=== PATIENT | female | born 1960 | race Asian ===

== ENCOUNTER 2018-02-03 11:11 | Outpatient (CLI) | payer OTHER ==
[~2018-02-03 11:11] MED LIST: CARV6.25 PO; CELEXA20 MG PO; CLON1TAB18 PO; DIVA250T2 PO; FLUOXETINE20 M2 PO; HYDR25TA60 PO; KLOR-CON 1010 MEQ PO; MELO-13 PO; METF500T PO; NEXIUM40 M1 PO; SENNA8.6 MG PO; TOPI100T PO; VIMPAT150 MG PO; ZANTAC 75 PO
== END 2018-02-03 21:40 | disposition home or self-care (01) ==
LOC: RAD 11:11
DX: M54.17 Radiculopathy, lumbosacral region (principal)

== ENCOUNTER 2018-02-23 15:09 | Outpatient (CLI) | payer OTHER | END 2018-02-23 15:12 | disposition short-term general hospital (02) | LOC: AMB 15:09 | DX: R45.851 Suicidal ideations (principal) | CPT/HCPCS: A0425; A0429 ==

== ENCOUNTER 2018-02-23 15:15 | Emergency (ER) | payer OTHER ==
[~2018-02-23] VITALS: Ht 167.6 cm; Wt 106.1 kg
[2018-02-23 15:55] LABS: PLATELET COUNT 234 K/uL (152-353)
[2018-02-23 16:11] LABS: POTASSIUM 3.5 mmol/L (3.6-5.2)
[2018-02-23 23:55] VITALS: TEMP 98.6
[2018-02-24 01:16] VITALS: BP 157/80
== END 2018-02-24 01:18 | disposition other institution (70) ==
LOC: ED 15:15
DX: R45.851 Suicidal ideations (principal); F19.90 Other psychoactive substance use, unspecified, uncomplicated
CPT/HCPCS: 36415; 80053; 80307; 80320; 80329; 81000; 82550; 84484; 85027; 93005; 99285

== ENCOUNTER 2018-06-09 17:44 | Outpatient (CLI) | payer OTHER | END 2018-06-09 19:39 | disposition home or self-care (01) | LOC: RAD 17:44 | DX: M25.571 Pain in right ankle and joints of right foot (principal) | CPT/HCPCS: 36415; 80164 ==

== ENCOUNTER 2018-07-14 08:54 | Outpatient (CLI) | payer OTHER | END 2018-07-14 08:58 | disposition short-term general hospital (02) | LOC: AMB 08:54 | DX: G40.89 Other seizures (principal) | CPT/HCPCS: A0425; A0427 ==

== ENCOUNTER 2018-07-14 08:58 | Emergency (ER) | payer OTHER ==
[~2018-07-14] VITALS: Ht 167.6 cm; Wt 124.7 kg
[2018-07-14 09:00] VITALS: TEMP 97.3
[2018-07-14 09:26] LABS: PLATELET COUNT 242 K/uL (152-353)
[2018-07-14 09:35] LABS: POTASSIUM 4.1 mmol/L (3.6-5.2)
[2018-07-14 10:16] VITALS: BP 174/80
== END 2018-07-14 10:15 | disposition home or self-care (01) ==
LOC: ED 09:01
PROVIDERS: Emergency Medicine
DX: R56.9 Unspecified convulsions (principal)
CPT/HCPCS: 36415; 80053; 85027; 99283

== ENCOUNTER 2018-07-21 10:42 | Outpatient (CLI) | payer OTHER | END 2018-07-21 19:20 | disposition home or self-care (01) | LOC: MAMMO 10:42 | DX: Z12.31 Encounter for screening mammogram for malignant neoplasm of breast (principal) ==

== ENCOUNTER 2018-08-09 09:18 | Outpatient (CLI) | payer OTHER | END 2018-08-09 19:21 | disposition home or self-care (01) | LOC: RAD 09:18 | DX: M25.561 Pain in right knee (principal); M25.562 Pain in left knee ==

== ENCOUNTER 2018-12-08 16:23 | Outpatient (CLI) | payer OTHER | END 2018-12-08 19:34 | disposition home or self-care (01) | LOC: RAD 16:23 | DX: M54.17 Radiculopathy, lumbosacral region (principal) ==

== ENCOUNTER 2019-03-25 13:29 | Outpatient (CLI) | payer OTHER | END 2019-03-25 23:33 | disposition home or self-care (01) | LOC: MRI 13:29 | DX: M54.16 Radiculopathy, lumbar region (principal) ==

== ENCOUNTER 2020-03-25 22:25 | Emergency (ER) | payer OTHER ==
[~2020-03-25] VITALS: Ht 167.6 cm; Wt 133.8 kg
[2020-03-25] MEDS ORDERED: SPRITAM750 MG PO (22:40)
[2020-03-25] MEDS ORDERED: ZONEGRAN100 MG PO (22:41)
[2020-03-25] MEDS ORDERED: AMLODIPINE BESYLATE PO (22:41)
[2020-03-25] MEDS ORDERED: MELOXICAM7.5 MG PO (22:41)
[2020-03-25] MEDS ORDERED: HYDR25TA60 PO (22:42)
[2020-03-25] MEDS ORDERED: CITALOPRAM40 M1 PO (22:42)
[2020-03-25] MEDS ORDERED: METF500T PO (22:43)
[2020-03-25] MEDS ORDERED: CARV6.25 PO (22:43)
[2020-03-25] MEDS ORDERED: QUETIAPINE100 MG PO (22:44)
[2020-03-25] MEDS ORDERED: KLOR-CON M2020 MEQ PO (22:44)
[2020-03-25 22:54] LABS: PLATELET COUNT 261 K/uL (152-353)
[2020-03-25 23:01] LABS: POTASSIUM 2.8 mmol/L (3.6-5.2); SODIUM 135 mmol/L (136-145)
[2020-03-25 23:32] LABS: PARTIAL THROMBOPLASTIN TIME 27.7 SECONDS (24.5-33.6)
[2020-03-26 00:30] VITALS: BP 148/76; TEMP 98.5
== END 2020-03-26 00:30 | disposition home or self-care (01) ==
LOC: ED 22:25
PROVIDERS: Hospitalist
DX: R56.9 Unspecified convulsions (principal); E87.6 Hypokalemia; Z79.899 Other long term (current) drug therapy; Z51.81 Encounter for therapeutic drug level monitoring; W01.198A Fall on same level from slipping, tripping and stumbling with subsequent striking against other object, initial encounter; Y92.098 Other place in other non-institutional residence as the place of occurrence of the external cause
CPT/HCPCS: 36415; 80053; 80320; 82550; 83605; 83880; 84484; 85027; 85610; 85730; 87040; 93005; 96365; 96375; 99284; J0696; J1885; J2405

== ENCOUNTER 2020-07-12 14:56 | Observation (INO) | payer OTHER ==
[~2020-07-12] VITALS: Ht 167.6 cm; Wt 137.9 kg
[~2020-07-12 14:56] MED LIST changes: +AMLODIPINE BESYLATE PO; +CITALOPRAM40 M1 PO; +KLOR-CON M2020 MEQ PO; +MELOXICAM7.5 MG PO; +QUETIAPINE100 MG PO; +SPRITAM750 MG PO; +ZONEGRAN100 MG PO
[2020-07-12 14:58] VITALS: BP 147/84; TEMP 98.7
[2020-07-12 15:30] VITALS: BP 142/76
[2020-07-12 15:35] LABS: PLATELET COUNT 294 K/uL (152-353)
[2020-07-12 15:44] LABS: SODIUM 133 mmol/L (136-145)
[2020-07-12 15:48] LABS: PARTIAL THROMBOPLASTIN TIME 26.3 SECONDS (24.5-33.6)
[2020-07-12 16:00] VITALS: BP 157/85
[2020-07-12 16:30] VITALS: BP 163/76
[2020-07-12] MEDS ORDERED: ROWEEPRA XR750 MG PO (17:53)
[2020-07-12 17:55] VITALS: BP 182/81; TEMP 98.2; Ht 167.6 cm; Wt 137.9 kg
[2020-07-12] MEDS ORDERED: ZONEGRAN100 MG PO (17:55)
[2020-07-12] MEDS ORDERED: CARAFATE1 GM PO (17:56)
[2020-07-12] MEDS ORDERED: OMEPRAZOLE DR40 MG PO (17:56)
[2020-07-12 20:00] VITALS: BP 114/78; TEMP 97.9
[2020-07-13] VITALS: BP 151/79; TEMP 98.1
[2020-07-13 04:00] VITALS: BP 120/68; TEMP 98.1
[2020-07-13] MEDS ORDERED: CELECOXIB100 MG PO (07:37)
[2020-07-13 08:00] VITALS: BP 133/66; TEMP 97.9
== END 2020-07-13 09:10 | disposition home or self-care (01) ==
LOC: ED 14:56 → MED/SURG 16:15
PROVIDERS: ADMIT Hospitalist
DX: M94.0 Chondrocostal junction syndrome [Tietze] (principal); E11.9 Type 2 diabetes mellitus without complications; K21.9 Gastro-esophageal reflux disease without esophagitis; I10 Essential (primary) hypertension; G40.802 Other epilepsy, not intractable, without status epilepticus; R06.02 Shortness of breath; R11.2 Nausea with vomiting, unspecified
CPT/HCPCS: 36415; 80053; 82550; 83880; 84484; 85027; 85610; 85730; 93005; 99220; G0378; J1650; J2270

== ENCOUNTER 2021-04-29 12:20 | Observation (INO) | payer OTHER ==
[~2021-04-29] VITALS: Ht 167.6 cm; Wt 127.5 kg
[~2021-04-29 12:20] MED LIST changes: +CARAFATE1 GM PO; +CELECOXIB100 MG PO; +OMEPRAZOLE DR40 MG PO; +ROWEEPRA XR750 MG PO
[2021-04-29 12:24] VITALS: BP 153/81; TEMP 98
[2021-04-29 13:03] LABS: PLATELET COUNT 281 K/uL (152-353)
[2021-04-29 13:08] LABS: POTASSIUM 3.5 mmol/L (3.6-5.2); SODIUM 140 mmol/L (136-145)
[2021-04-29 15:42] VITALS: BP 179/83; TEMP 98.3; Ht 167.6 cm; Wt 127.5 kg
[2021-04-29] MEDS ORDERED: HYDROXYZINE HYD50 MG PO (16:49)
[2021-04-29] MEDS ORDERED: ZONEGRAN100 MG PO ×2 (17:01→17:03)
[2021-04-29] MEDS ORDERED: KEPPRA750 MG PO (17:02)
[2021-04-29] MEDS ORDERED: FLUC150T PO (17:05)
[2021-04-29 20:00] VITALS: BP 154/86; TEMP 98.2
[2021-04-30] VITALS: BP 162/73; TEMP 97.7
[2021-04-30 04:00] VITALS: BP 159/70; TEMP 97.6
== END 2021-04-30 15:30 | disposition home or self-care (01) ==
LOC: ED 12:20 → MED/SURG 14:10
PROVIDERS: Emergency Medicine Emergency Medical Services; ADMIT Internal Medicine; ATTEND Internal Medicine
DX: R07.89 Other chest pain (principal); M25.512 Pain in left shoulder; G40.802 Other epilepsy, not intractable, without status epilepticus; I10 Essential (primary) hypertension; K21.9 Gastro-esophageal reflux disease without esophagitis; F41.8 Other specified anxiety disorders
CPT/HCPCS: 36415; 80053; 82550; 82948; 83735; 84484; 85027; 85379; 85610; 87635; 93005; 96360; 96374; 96375; 99220; 99284; G0378; J1885; J2270; U0003

== ENCOUNTER 2022-04-05 14:05 | Emergency (ER) | payer OTHER ==
[~2022-04-05] VITALS: Ht 167.6 cm; Wt 132.9 kg
[~2022-04-05 14:05] MED LIST changes: +FLUC150T PO; +HYDROXYZINE HYD50 MG PO; +KEPPRA750 MG PO
[2022-04-05 15:16] LABS: PLATELET COUNT 267 K/uL (152-353)
[2022-04-05 17:23] VITALS: BP 144/72; TEMP 98
== END 2022-04-05 17:30 | disposition home or self-care (01) ==
LOC: ED 14:05
PROVIDERS: Family Medicine
DX: M25.562 Pain in left knee (principal); M25.561 Pain in right knee; M17.0 Bilateral primary osteoarthritis of knee
CPT/HCPCS: 80053; 84550; 85007; 85027; 96374; 96375; 99284; J1100; J1200; J1885

== ENCOUNTER 2022-04-21 08:47 | Outpatient (CLI) | payer OTHER | END 2022-04-21 18:48 | disposition home or self-care (01) | LOC: US 08:47 | PROVIDERS: ATTEND Nurse Practitioner | DX: R60.0 Localized edema (principal) ==

== ENCOUNTER 2022-05-15 14:59 | Emergency (ER) | payer OTHER ==
[~2022-05-15] VITALS: Ht 167.6 cm; Wt 131.1 kg
[2022-05-15 15:16] VITALS: BP 181/79; TEMP 98
== END 2022-05-15 16:40 | disposition home or self-care (01) ==
LOC: ED 14:59
DX: S09.8XXA Other specified injuries of head, initial encounter (principal); S00.83XA Contusion of other part of head, initial encounter; W18.39XA Other fall on same level, initial encounter; Y92.89 Other specified places as the place of occurrence of the external cause
CPT/HCPCS: 96372; 99283; J1885

== ENCOUNTER 2022-07-22 13:00 | Emergency (ER) | payer OTHER ==
[~2022-07-22] VITALS: Ht 167.6 cm; Wt 142.9 kg
[2022-07-22 13:00] VITALS: TEMP 98
[2022-07-22 14:05] LABS: POTASSIUM 4.4 mmol/L (3.6-5.2)
[2022-07-22 14:18] LABS: PARTIAL THROMBOPLASTIN TIME 23.6 SECONDS (24.5-33.6); PLATELET COUNT 296 K/uL (152-353)
[2022-07-22 16:28] VITALS: BP 168/86
== END 2022-07-22 16:36 | disposition home or self-care (01) ==
LOC: ED 13:00
PROVIDERS: Emergency Medicine
DX: I10 Essential (primary) hypertension (principal); F41.8 Other specified anxiety disorders; R51.9 Headache, unspecified; G89.29 Other chronic pain; I50.9 Heart failure, unspecified; Z20.822 Contact with and (suspected) exposure to COVID-19; F17.210 Nicotine dependence, cigarettes, uncomplicated
CPT/HCPCS: 80053; 80307; 83880; 84484; 85027; 85610; 85730; 87635; 93005; 96374; 96375; 99284; J0360; J2060; J3490; U0003

== ENCOUNTER 2022-09-15 10:59 | Outpatient (CLI) | payer OTHER | END 2022-09-15 20:23 | disposition home or self-care (01) | LOC: MAMMO 10:59 | PROVIDERS: ATTEND Internal Medicine | DX: Z12.31 Encounter for screening mammogram for malignant neoplasm of breast (principal) ==

== ENCOUNTER 2022-09-18 20:56 | Emergency (ER) | payer OTHER ==
[~2022-09-18] VITALS: Ht 167.6 cm; Wt 142.9 kg
[2022-09-18 21:10] VITALS: TEMP 97.7
[2022-09-18 22:14] VITALS: BP 145/67
== END 2022-09-18 22:14 | disposition home or self-care (01) ==
LOC: ED 20:56
PROC: 2W3RX1Z Immobilization of Left Lower Leg using Splint (ICD-10-PCS; principal; 2022-09-18)
DX: S82.65XA Nondisplaced fracture of lateral malleolus of left fibula, initial encounter for closed fracture (principal); W18.09XA Striking against other object with subsequent fall, initial encounter; Y92.092 Bedroom in other non-institutional residence as the place of occurrence of the external cause
CPT/HCPCS: 96372; 99283; J1885

== ENCOUNTER 2022-09-26 13:37 | Observation (INO) | payer OTHER ==
[~2022-09-26] VITALS: Ht 170.2 cm; Wt 135.2 kg
[2022-09-26 13:40] VITALS: BP 164/85; TEMP 97
[2022-09-26 14:13] LABS: PLATELET COUNT 393 K/uL (152-353)
[2022-09-26 14:22] LABS: POTASSIUM 2.5 mmol/L (3.6-5.2)
[2022-09-26 16:38] LABS: PARTIAL THROMBOPLASTIN TIME 25.3 SECONDS (24.5-33.6)
[2022-09-26 17:44] VITALS: BP 151/69; TEMP 98.4; Ht 170.2 cm; Wt 135.2 kg
[2022-09-26 20:00] VITALS: BP 152/61; TEMP 98.4
[2022-09-26 23:31] VITALS: BP 155/78; TEMP 98.3
[2022-09-27 04:02] VITALS: BP 180/85; TEMP 98.6
[2022-09-27 04:45] VITALS: BP 164/76
[2022-09-27 04:47] LABS: PLATELET COUNT 335 K/uL (152-353)
[2022-09-27 04:58] LABS: POTASSIUM 3.2 mmol/L (3.6-5.2)
[2022-09-27 08:00] VITALS: BP 157/76; TEMP 98.6
[2022-09-27 12:00] VITALS: BP 156/72; TEMP 98.7
[2022-09-27] MEDS ORDERED: ZONEGRAN100 MG PO (14:38)
[2022-09-27] MEDS ORDERED: TRAMADOL HYDROC50 MG PO (14:38)
[2022-09-27] MEDS ORDERED: ALPR0.5T24 PO (14:39)
[2022-09-27] MEDS ORDERED: ACET-689 PO (14:42)
[2022-09-27] MEDS ORDERED: QUETIAPINE100 MG PO ×2 (14:45→14:46)
[2022-09-27] MEDS ORDERED: HYDR25TA60 PO (14:48)
[2022-09-27] MEDS ORDERED: POT CHLORIDE10 MEQ PO (14:49)
[2022-09-27] MEDS ORDERED: AMLODIPINE BESYLATE PO (14:49)
[2022-09-27 16:00] VITALS: BP 170/79; TEMP 99.1
[2022-09-27 19:42] VITALS: BP 179/59; TEMP 98.9
[2022-09-28] VITALS: BP 168/82; TEMP 98.6
[2022-09-28 04:00] VITALS: BP 179/92; TEMP 98.5
[2022-09-28 05:40] LABS: PLATELET COUNT 317 K/uL (152-353)
[2022-09-28 05:51] LABS: POTASSIUM 3.6 mmol/L (3.6-5.2)
[2022-09-28 08:24] VITALS: BP 156/65; TEMP 98.2
[2022-09-28 11:54] VITALS: BP 153/70; TEMP 98.6
== END 2022-09-28 14:21 | disposition home or self-care (01) ==
LOC: ED 13:37 → MED/SURG 15:40
PROVIDERS: Emergency Medicine; ADMIT Internal Medicine Endocrinology, Diabetes & Metabolism; ATTEND Internal Medicine Endocrinology, Diabetes & Metabolism
DX: E87.6 Hypokalemia (principal); F41.8 Other specified anxiety disorders; F31.89 Other bipolar disorder; G40.802 Other epilepsy, not intractable, without status epilepticus; G89.4 Chronic pain syndrome; E66.01 Morbid (severe) obesity due to excess calories; I10 Essential (primary) hypertension; E11.65 Type 2 diabetes mellitus with hyperglycemia; U07.1 COVID-19; Z68.42 Body mass index [BMI] 45.0-49.9, adult; R74.01 Elevation of levels of liver transaminase levels; R11.2 Nausea with vomiting, unspecified; R53.1 Weakness; R10.9 Unspecified abdominal pain
CPT/HCPCS: 36415; 80053; 80074; 80307; 81002; 82948; 83735; 84484; 85027; 85610; 85730; 87502; 87635; 93005; 96361; 96367; 96374; 96375; 96376; 99220; 99283; 99284; G0378; J1885; J1953; J2060; J2270; J2405; U0003

== ENCOUNTER 2022-11-14 10:45 | Emergency (ER) | payer OTHER ==
[~2022-11-14] VITALS: Ht 167.6 cm; Wt 134.7 kg
[~2022-11-14 10:45] MED LIST changes: +ACET-689 PO; +ALPR0.5T24 PO; +POT CHLORIDE10 MEQ PO; +TRAMADOL HYDROC50 MG PO
[2022-11-14 13:00] VITALS: BP 156/69; TEMP 98.1
== END 2022-11-14 13:00 | disposition home or self-care (01) ==
LOC: ED 10:45
DX: G62.9 Polyneuropathy, unspecified (principal); S82.65XG Nondisplaced fracture of lateral malleolus of left fibula, subsequent encounter for closed fracture with delayed healing; X58.XXXD Exposure to other specified factors, subsequent encounter; Y92.89 Other specified places as the place of occurrence of the external cause
CPT/HCPCS: 99283

== ENCOUNTER 2022-12-08 12:48 | Outpatient (CLI) | payer OTHER | END 2022-12-08 20:50 | disposition home or self-care (01) | LOC: US 12:48 | PROVIDERS: ATTEND Nurse Practitioner Family | DX: R22.1 Localized swelling, mass and lump, neck (principal) ==

== ENCOUNTER 2023-04-17 15:58 | Emergency (ER) | payer OTHER ==
[~2023-04-17] VITALS: Ht 167.6 cm; Wt 141.5 kg
[2023-04-17 17:37] VITALS: BP 159/73; TEMP 98.1
== END 2023-04-17 17:37 | disposition home or self-care (01) ==
LOC: ED 15:58
DX: M79.662 Pain in left lower leg (principal); S86.912A Strain of unspecified muscle(s) and tendon(s) at lower leg level, left leg, initial encounter
CPT/HCPCS: 96372; 99283; J1100

== ENCOUNTER 2023-05-21 10:27 | Outpatient (CLI) | payer OTHER | END 2023-05-21 20:07 | disposition home or self-care (01) | LOC: MRI 10:27 | PROVIDERS: ATTEND Psychiatry & Neurology Neurology | DX: G40.802 Other epilepsy, not intractable, without status epilepticus (principal); Z98.890 Other specified postprocedural states | CPT/HCPCS: 36415; 82565; 84520; A9576 ==